=== PATIENT | female | born 1995 | race Caucasian/White ===

== ENCOUNTER 2017-11-17 12:48 | Emergency (ER) | payer OTHER ==
[~2017-11-17] VITALS: Ht 157.5 cm; Wt 58.8 kg
[~2017-11-17 12:48] MED LIST: DOXY100C PO; METH4PAK PO; ZOFR4TAB3 SL
[2017-11-17 13:05] VITALS: BP 114/55; PULSE 89; RESP 16; TEMP 98.7; O2SAT 99
--- NOTE | 2017-11-17 13:33 | PD ---
HPI Chief Complaint: Abdominal Pain Time Seen by Provider: 13:15 Travel History International Travel<30 days: No Contact w/Intl Traveler<30days: No Traveled to known affect area: No History of Present Illness HPI This 22-year-old female is complaining of lower abdominal pain. She says the pain started Tuesday night. It started fairly suddenly and was very severe Tuesday night. Got a little bit better but is been present since then. She says she has never been sexually active. The pain is located on the right side. She is not aware of any fever or chills. PFSH Past Medical History Asthma: Yes Anxiety: Yes Depression: Yes Diminished Hearing: No GERD: Yes Immunizations Current: Yes ?: Not LMP: 2 WEEKS : 0 Past Surgical History Tonsillectomy: Yes Social History Alcohol Use: No Tobacco Use: No Substance Use: No Allergies-Medications (Allergen,Severity, Reaction): Coded Allergies: morphine (Verified Allergy, Severe, RASH, 11/17/17) penicillin G (Unverified Allergy, Unknown, UNKNOWN, 11/17/17) Reported Meds & Prescriptions Reported Meds & Active Scripts Active No Active Prescriptions or Reported Medications Review of Systems General / Constitutional: No: Fever, Chills Eyes: No: Diploplia, Blurred Vision HENT: No: Headaches, Vertigo Cardiovascular: No: Chest Pain or Discomfort, Palpitations Respiratory: No: Cough, Shortness of Breath Gastrointestinal: No: Nausea Genitourinary: Positive: Pelvic Pain, No: Urgency, Frequency Musculoskeletal: No: Myalgias Skin: No Rash, No Itching Neurologic: No: Weakness Psychiatric: No: Anxiety Endocrine: No: Heat Intolerance Hematologic/Lymphatic: No: Easy Bruising Physical Exam Narrative GENERAL: Well-developed female SKIN: Focused skin assessment warm/dry. HEAD: Atraumatic. Normocephalic. EYES: Pupils equal and round. No scleral icterus. No injection or drainage. ENT: No nasal bleeding or discharge. Mucous membranes pink and moist. NECK: Trachea midline. No JVD. CARDIOVASCULAR: Regular rate and rhythm. No murmur appreciated. RESPIRATORY: No accessory muscle use. Clear to auscultation. Breath sounds equal bilaterally. GASTROINTESTINAL: Abdomen soft, there is some right lower quadrant tenderness nondistended. Hepatic and splenic margins not palpable. Pelvic: Slight discharge. There is no pain with movement of the cervix. There are no adnexal masses or tenderness MUSCULOSKELETAL: No obvious deformities. No clubbing. No cyanosis. No edema. NEUROLOGICAL: Awake and alert. No obvious cranial nerve deficits. Motor grossly within normal limits. Normal speech. PSYCHIATRIC: Appropriate mood and affect; insight and judgment normal. Data Data Last Documented VS Vital Signs Date Time Temp Pulse Resp B/P (MAP) Pulse Ox O2 Delivery O2 Flow Rate FiO2 11/17/17 13:05 98.7 89 16 114/55 (74) 99 Orders Orders Complete Blood Count With Diff (11/17/17 13:23) Basic Metabolic Panel (Bmp) (11/17/17 13:23) Urinalysis - C+S If Indicated (11/17/17 13:23) Beta Hcg (Quant/Titer) (11/17/17 13:23) Urine Culture (11/17/17 13:37) Gc And Chlamydia Pcr (11/17/17 14:37) Wet Prep Profile (11/17/17 14:37) Labs Laboratory Tests Test 11/17/17 13:37 White Blood Count 8.3 TH/MM3 Red Blood Count 4.62 MIL/MM3 Hemoglobin 13.2 GM/DL Hematocrit 39.9 % Mean Corpuscular Volume 86.4 FL Mean Corpuscular Hemoglobin 28.5 PG Mean Corpuscular Hemoglobin Concent 33.0 % Red Cell Distribution Width 12.6 % Platelet Count 310 TH/MM3 Mean Platelet Volume 7.2 FL Neutrophils (%) (Auto) 55.9 % Lymphocytes (%) (Auto) 32.4 % Monocytes (%) (Auto) 7.1 % Eosinophils (%) (Auto) 3.3 % Basophils (%) (Auto) 1.3 % Neutrophils # (Auto) 4.6 TH/MM3 Lymphocytes # (Auto) 2.7 TH/MM3 Monocytes # (Auto) 0.6 TH/MM3 Eosinophils # (Auto) 0.3 TH/MM3 Basophils # (Auto) 0.1 TH/MM3 CBC Comment DIFF FINAL Differential Comment Urine Collection Type CLEAN CATCH Urine Color YELLOW Urine Turbidity CLEAR Urine pH 7.0 Urine Specific [place] LESS/EQUAL 1.005 Urine Protein NEG mg/dL Urine Glucose (UA) NEG mg/dL Urine Ketones NEG mg/dL Urine Occult Blood NEG Urine Nitrite NEG Urine Bilirubin NEG Urine Urobilinogen 0.2 MG/DL Urine Leukocyte Esterase MOD Urine WBC 9-14 /hpf Urine Squamous Epithelial Cells 6-8 /hpf Urine Bacteria FEW /hpf Microscopic Urinalysis Comment CULTURE INDICATED Blood Urea Nitrogen 7 MG/DL Creatinine 1.10 MG/DL Random Glucose 70 MG/DL Calcium Level 8.6 MG/DL Sodium Level 138 MEQ/L Potassium Level 4.2 MEQ/L Chloride Level 107 MEQ/L Carbon Dioxide Level 24.8 MEQ/L Anion Gap 6 MEQ/L Estimat Glomerular Filtration Rate 63 ML/MIN Human Chorionic Gonadotropin, Quant LESS THAN 1 MIU/ML MDM Medical Decision Making Medical Screen Exam Complete: Yes Emergency Medical Condition: Yes Medical Record Reviewed: Yes Differential Diagnosis Differential includes appendicitis, ovarian cyst, cervicitis Narrative Course White count is normal. Urine does show a urinary tract infection and she will be treated with Bactrim. Exam is not consistent with cervicitis. She will be placed on Bactrim and I will give a prescription in case the pain is bad but I would recommend that she return if the pain is more severe. The pain was most severe Tuesday and has been getting better this would be most consistent with ovarian cyst Diagnosis Primary Impression: Ovarian cyst Scripts Hydrocodone-Acetaminophen ([place]) 5 Mg-325 Mg Tab 1 TAB PO Q4H Y for PAIN, #7 TAB 0 Refills Prov: Matthew Chung MD 11/17/17 Sulfamethoxazole-Trimethoprim (Bactrim DS) 800-160 Mg Tab 1 TAB PO BID for Infection for 7 Days, #14 TAB 0 Refills Prov: Matthew Chung MD 11/17/17 Disposition: 01 DISCHARGE HOME Condition: Stable Matthew Chung MD Nov 17, 2017 13:33
[2017-11-17 13:45] LABS: AUTOMATED NEUTROPHIL # 4.6 TH/MM3 (1.8-7.7); BASOPHIL # 0.1 TH/MM3 (0-0.2); BASOPHIL % 1.3 % (0.0-2.0); EOSINOPHIL # 0.3 TH/MM3 (0-0.4); EOSINOPHIL % 3.3 % (0.0-4.0); HEMATOCRIT 39.9 % (35.0-46.0); HEMOGLOBIN 13.2 GM/DL (11.6-15.3); LYMPH % 32.4 % (9.0-44.0); LYMPHOCYTE # 2.7 TH/MM3 (1.0-4.8); MEAN CELL VOLUME 86.4 FL (80.0-100.0); MEAN CORPUSCULAR HEMOGLOBIN 28.5 PG (27.0-34.0); MEAN PLATELET VOLUME 7.2 FL (7.0-11.0); MONO % 7.1 % (0.0-8.0); MONOCYTE # 0.6 TH/MM3 (0-0.9); NEUT % 55.9 % (16.0-70.0); PLATELET COUNT 310 TH/MM3 (150-450); RED BLOOD COUNT 4.62 MIL/MM3 (4.00-5.30); RED CELL DISTRIBUTION WIDTH 12.6 % (11.6-17.2); WHITE BLOOD COUNT 8.3 TH/MM3 (4.0-11.0)
[2017-11-17 13:46] LABS: BILIRUBIN, URINE NEG (NEG); BLOOD, URINE NEG (NEG); GLUCOSE,URINE NEG (NEG); KETONE, URINE NEG (NEG); NITRITE,URINE NEG (NEG); URINE COLOR YELLOW (YELLW/STRAW); URINE LEUKOCYTE ESTERASE MOD (NEG)
[2017-11-17 13:51] LABS: BACTERIA, URINE FEW /hpf
[2017-11-17 14:00] LABS: CHLORIDE 107 MEQ/L (98-107); SODIUM (NA) 138 MEQ/L (136-145)
[2017-11-17 14:03] LABS: CALCIUM 8.6 MG/DL (8.5-10.1)
[2017-11-17 14:04] LABS: BICARBONATE 24.8 MEQ/L (21.0-32.0); BLOOD UREA NITROGEN 7 MG/DL (7-18); GLUCOSE,RANDOM 70 MG/DL (74-106)
[2017-11-17 14:07] LABS: GLOMERULAR FILTRATION RATE 63 ML/MIN (>89)
[2017-11-17] MEDS ORDERED: BACT800T5 PO (14:41)
[2017-11-17] MEDS ORDERED: NORC5TAB PO (14:41)
[2017-11-17 15:13] VITALS: BP 97/60; PULSE 81; RESP 18; O2SAT 99
== END 2017-11-17 15:17 | disposition home or self-care (01) ==
LOC: PHED 12:48
DX: N83.209 Unspecified ovarian cyst, unspecified side (principal)
CPT/HCPCS: 80048; 81001; 84702; 85025; 87086; 87210; 87491; 87591; 99284